=== PATIENT | female | born 1950 | race Caucasian/White ===

== ENCOUNTER 2024-11-03 08:19 | Day surgery (SDC) | payer MEDICARE, OTHER ==
[~2024-11-03 08:19] MED LIST: Sodium Chloride 0.9% 10 ML Syringe FLUSH PRN; Sodium Chloride 0.9% 10 ML Syringe FLUSH SCH
[2024-11-03] MEDS: Lactated Ringers 1,000 ML IV SCH (08:45)
[2024-11-03] MEDS ORDERED: Lidocaine 1% 4 ML ONE (09:34)
[2024-11-03] MEDS ORDERED: Propofol 200 MG/20 ML SDV ONE ×3 (09:34→10:00)
== END 2024-11-03 11:09 | disposition home or self-care (01) ==
LOC: JD.SDS 08:19
PROVIDERS: ATTEND Surgery
DX: Z12.11 Encounter for screening for malignant neoplasm of colon (principal); K63.5 Polyp of colon; K57.31 Diverticulosis of large intestine without perforation or abscess with bleeding; I10 Essential (primary) hypertension; K21.9 Gastro-esophageal reflux disease without esophagitis; F17.210 Nicotine dependence, cigarettes, uncomplicated; Z79.82 Long term (current) use of aspirin; Z79.899 Other long term (current) drug therapy
CPT/HCPCS: 45385; J2003; J2704; J7120; 00811; 99100